=== PATIENT | male | born 1945 | race Asian ===

== ENCOUNTER → 2016-11-20 | Outpatient (CLI) | payer MEDICAID ==
[~2016-11-20] MED LIST: ALLO100T PO; AMLO10TA55 PO; ENOX40DI9 SQ; FISH1CAP49 PO; GLUC-165 PO; HYDR-3965 PO; IBUP-1547 PO; MULT-1259 PO; NAPR220T57 PO; PERCT10 PO; TAMS0.4C32 PO
== END | disposition home or self-care (01) ==
LOC: RADPV 09:50
PROVIDERS: ATTEND Orthopaedic Surgery
DX: M17.12 Unilateral primary osteoarthritis, left knee (principal); M11.262 Other chondrocalcinosis, left knee

== ENCOUNTER 2016-12-11 05:26 | Inpatient (IN) | payer MEDICAID, MEDICARE ==
[~2016-12-11] VITALS: Ht 157.5 cm; Wt 67.7 kg
[~2016-12-11 05:26] MED LIST changes: -ENOX40DI9 SQ; -FISH1CAP49 PO; +FentaNYL CITRATE-PF 100 MCG/2 ML VIAL IVP ONE; -GLUC-165 PO; -IBUP-1547 PO; +KETAMINE HCL 50 MG/ML 10 ML VIAL IVP ONE; +LIDOCAINE HCL/PF 2% 5 ML VIAL IM ONE; +MIDAZOLAM HCL 2 MG/2 ML VIAL IVP ONE; +MORPHINE SULFATE/PF 0.5 MG/ML 10 ML AMP IVP ONE; +ONDANSETRON HCL 4 MG/2 ML VIAL IVP ONE; -PERCT10 PO; +PROPOFOL 1% 20 ML VIAL IVP ONE
[2016-12-11] MEDS: RINGERS SOLUTION,LACTATED 1,000 ML IV SCH (06:22)
[2016-12-11 06:37] LABS: BASOPHILS % (AUTO) 0.7 % (0.0-2.0); EOSINOPHILS % (AUTO) 1.7 % (1.0-6.0); HEMATOCRIT 44.6 % (41-53); HEMOGLOBIN 14.6 g/dL (13.5-17.5); LYMPHOCYTES # (AUTO) 1.6 K/uL (1.0-4.8); LYMPHOCYTES % (AUTO) 19.2 % (22.0-44.0); MEAN CORPUSCULAR HEMOGLOBIN 30.5 pg (26.0-34.0); MEAN CORPUSCULAR HGB CONC 32.8 G/dL (31.0-37.0); MEAN CORPUSCULAR VOLUME 93 fL (80-100); MONOCYTES # (AUTO) 0.3 K/uL (0.1-1.0); NEUTROPHILS # (AUTO) 6.3 K/uL (1.8-7.7); NEUTROPHILS % (AUTO) 74.4 % (40.0-70.0); PLATELET COUNT (AUTO) 204 K/uL (150-450); RED BLOOD CELL COUNT(AUTO) 4.79 MIL/uL (4.50-5.90); RED CELL DISTRIBUTION WIDTH 14.7 % (11.5-14.5); WHITE BLOOD COUNT (AUTO) 8.5 K/uL (4.5-11.0)
[2016-12-11] MEDS ORDERED: VANCOMYCIN HCL 1 GM/VIAL ONE (06:43)
[2016-12-11 06:46] LABS: ANION GAP 12 mmol/L (8-16); CARBON DIOXIDE 25 mmol/L (22-29); CHLORIDE 106 mmol/L (98-107); CREATININE 1.09 mg/dL (0.60-1.30); GLOMERULAR FILTR. RATE CALC > 60 mL/min (>60); SODIUM SERUM 143 mmol/L (136-145); UREA NITROGEN, BLOOD 15 mg/dL (7-18)
[2016-12-11] MEDS ORDERED: SODIUM CL IRRIG SOLN BAG 3,000 ML IRRIG ONE (06:51)
[2016-12-11] MEDS ORDERED: CeFAZolin 2 GM/DEXTROSE 50 ML IV ONE (07:00)
[2016-12-11 07:05] LABS: INR 0.9 (0.9-1.1)
[2016-12-11] MEDS ORDERED: TRANEXAMIC ACID 1,000 MG in DEXTROSE 5%-WATER 50 ML IV ONE (07:15)
[2016-12-11] MEDS: BUPIVACAINE HCL/PF 0.5% 30 ML VIAL ONE ×2 (08:16→09:00)
[2016-12-11] MEDS: ACETAMINOPHEN 1000 MG/ISO-OSM 100 ML IV SCH ×2 (08:30→16:48)
[2016-12-11] MEDS ORDERED: HYDROmorphone 2 MG/ML SYRINGE IVP PRN ×2 (08:30)
[2016-12-11] MEDS ORDERED: MEPERIDINE-PF 25 MG/ML SYRINGE IVP PRN (08:30)
[2016-12-11] MEDS ORDERED: FentaNYL CITRATE-PF 100 MCG/2 ML VIAL IVP PRN (08:30)
[2016-12-11] MEDS ORDERED: CeFAZolin 2 GM/DEXTROSE 50 ML IV SCH (10:00)
[2016-12-11] MEDS: BISACODYL 5 MG EC TABLET PO SCH (12:51)
[2016-12-11] MEDS: CELECOXIB 100 MG CAPSULE PO SCH (12:51)
[2016-12-11 14:24] VITALS: BP 119/56
[2016-12-11] MEDS: CeFAZolin 2 GM/DEXTROSE 50 ML IV SCH ×2 (16:05→23:46)
[2016-12-11 17:30] VITALS: BP 138/66
[2016-12-11 19:38] VITALS: BP 114/54
[2016-12-11] MEDS: OXYGEN THERAPY IH SCH (20:00)
[2016-12-11] MEDS: TAMSULOSIN HCL 0.4 MG CAPSULE PO SCH (20:03)
[2016-12-11] MEDS: ALLOPURINOL 100 MG TABLET PO SCH (20:03)
[2016-12-11] MEDS: CYCLOBENZAPRINE HCL 10 MG TABLET PO PRN (20:03)
[2016-12-11 23:50] VITALS: BP 114/54
[2016-12-12] MEDS: RINGERS SOLUTION,LACTATED 1,000 ML IV SCH (01:00)
[2016-12-12] MEDS: ACETAMINOPHEN 1000 MG/ISO-OSM 100 ML IV SCH ×2 (01:00→08:52)
[2016-12-12 05:29] VITALS: BP 125/60
[2016-12-12 06:23] LABS: BASOPHILS % (AUTO) 0.5 % (0.0-2.0); EOSINOPHILS % (AUTO) 5.3 % (1.0-6.0); HEMATOCRIT 40.7 % (41-53); HEMOGLOBIN 13.2 g/dL (13.5-17.5); LYMPHOCYTES # (AUTO) 1.5 K/uL (1.0-4.8); LYMPHOCYTES % (AUTO) 18.6 % (22.0-44.0); MEAN CORPUSCULAR HEMOGLOBIN 30.1 pg (26.0-34.0); MEAN CORPUSCULAR HGB CONC 32.4 G/dL (31.0-37.0); MEAN CORPUSCULAR VOLUME 93 fL (80-100); MONOCYTES # (AUTO) 0.5 K/uL (0.1-1.0); MONOCYTES % (AUTO) 6.1 % (2.0-9.0); NEUTROPHILS # (AUTO) 5.7 K/uL (1.8-7.7); NEUTROPHILS % (AUTO) 69.5 % (40.0-70.0); PLATELET COUNT (AUTO) 177 K/uL (150-450); RED BLOOD CELL COUNT(AUTO) 4.38 MIL/uL (4.50-5.90); RED CELL DISTRIBUTION WIDTH 14.8 % (11.5-14.5); WHITE BLOOD COUNT (AUTO) 8.2 K/uL (4.5-11.0)
[2016-12-12 06:46] LABS: ANION GAP 10 mmol/L (8-16); CALCIUM, TOTAL 8.8 mg/dL (8.8-10.5); CARBON DIOXIDE 26 mmol/L (22-29); CHLORIDE 107 mmol/L (98-107); CREATININE 1.01 mg/dL (0.60-1.30); GLOMERULAR FILTR. RATE CALC > 60 mL/min (>60); POTASSIUM 4.2 mmol/L (3.5-5.1); SODIUM SERUM 143 mmol/L (136-145); UREA NITROGEN, BLOOD 16 mg/dL (7-18)
[2016-12-12] MEDS: OXYGEN THERAPY IH SCH (08:00)
[2016-12-12 08:02] VITALS: BP 127/72
[2016-12-12] MEDS: CeFAZolin 2 GM/DEXTROSE 50 ML IV SCH (08:52)
[2016-12-12] MEDS: BISACODYL 5 MG EC TABLET PO SCH (08:53)
[2016-12-12] MEDS: CELECOXIB 100 MG CAPSULE PO SCH (08:53)
[2016-12-12] MEDS: ALLOPURINOL 100 MG TABLET PO SCH ×2 (08:53→20:08)
[2016-12-12] MEDS: MULTIVITAMINS WITH MINERALS, THERAPEUTIC TABLET PO SCH (08:53)
[2016-12-12] MEDS: AmLODIPine BESYLATE 10 MG TABLET PO SCH (08:53)
[2016-12-12] MEDS: ENOXAPARIN SODIUM 40 MG/0.4 ML PF SYRINGE SQ SCH (08:54)
[2016-12-12 11:45] VITALS: BP 131/67
[2016-12-12] MEDS: CYCLOBENZAPRINE HCL 10 MG TABLET PO PRN (15:12)
[2016-12-12] MEDS ORDERED: HYDROCODONE/ACETAMINOPHEN 5-325 MG TABLET PO PRN (15:45)
[2016-12-12] MEDS: HYDROCODONE/ACETAMINOPHEN 5-325 MG TABLET PO PRN ×2 (16:05→20:07)
[2016-12-12 16:16] VITALS: BP 126/62
[2016-12-12 20:07] VITALS: BP 218/67
[2016-12-12] MEDS: TAMSULOSIN HCL 0.4 MG CAPSULE PO SCH (20:07)
[2016-12-12 23:45] VITALS: BP 110/61
[2016-12-13 04:01] VITALS: BP 146/78
[2016-12-13] MEDS: HYDROCODONE/ACETAMINOPHEN 5-325 MG TABLET PO PRN (06:02)
[2016-12-13 07:25] VITALS: BP 134/59
[2016-12-13] MEDS: OXYGEN THERAPY IH SCH (08:00)
[2016-12-13] MEDS: ALLOPURINOL 100 MG TABLET PO SCH (08:19)
[2016-12-13] MEDS: MULTIVITAMINS WITH MINERALS, THERAPEUTIC TABLET PO SCH (08:19)
[2016-12-13] MEDS: AmLODIPine BESYLATE 10 MG TABLET PO SCH (08:19)
[2016-12-13] MEDS: BISACODYL 5 MG EC TABLET PO SCH (08:19)
[2016-12-13] MEDS: CELECOXIB 100 MG CAPSULE PO SCH (08:19)
[2016-12-13] MEDS: ENOXAPARIN SODIUM 40 MG/0.4 ML PF SYRINGE SQ SCH (08:20)
[2016-12-13] MEDS ORDERED: ENOX40DI9 SQ (10:13)
[2016-12-13] MEDS ORDERED: PERCT10 PO (10:13)
[2016-12-13 11:54] VITALS: BP 152/65
[2016-12-13] MEDS: CYCLOBENZAPRINE HCL 10 MG TABLET PO PRN (15:12)
[2016-12-15] MEDS ORDERED: CeFAZolin 2 GM/DEXTROSE 50 ML IV ONE (16:22)
[2016-12-15] MEDS ORDERED: RINGERS SOLUTION,LACTATED 1,000 ML IV ONE ×2 (16:22)
[2016-12-15] MEDS ORDERED: CELECOXIB 200 MG CAPSULE ONE (16:22)
[2016-12-15] MEDS ORDERED: ACETAMINOPHEN 1000 MG/ISO-OSM 100 ML IV ONE (16:22)
== END 2016-12-13 15:46 | disposition home or self-care (01) | DRG 470 ==
LOC: 4E 05:26
PROVIDERS: ADMIT Orthopaedic Surgery; ATTEND Orthopaedic Surgery
PROC: 3E0T3CZ (ICD-10-PCS; 2016-12-11)
PROC: 0SRD0J9 Replacement of Left Knee Joint with Synthetic Substitute, Cemented, Open Approach (ICD-10-PCS; principal; 2016-12-11 08:04)
DX: M17.12 Unilateral primary osteoarthritis, left knee (principal); I10 Essential (primary) hypertension; N40.0 Benign prostatic hyperplasia without lower urinary tract symptoms; Z96.651 Presence of right artificial knee joint; M10.9 Gout, unspecified; Z98.890 Other specified postprocedural states; Z79.899 Other long term (current) drug therapy
CPT/HCPCS: 87081; 88300; 97110; 97116; 97161; 97165; 97530; G0238; J0131; J0690; J1170; J1650; J2250; J2274; J2405; J2704; J3010; J3370; J3490; J7060; J7120

== ENCOUNTER → 2017-09-24 | Outpatient (CLI) | payer MEDICAID ==
[~2017-09-24] MED LIST changes: +ENOX40DI9 SQ; -FentaNYL CITRATE-PF 100 MCG/2 ML VIAL IVP ONE; -HYDR-3965 PO; +HYDR-4061 PO; -KETAMINE HCL 50 MG/ML 10 ML VIAL IVP ONE; -LIDOCAINE HCL/PF 2% 5 ML VIAL IM ONE; -MIDAZOLAM HCL 2 MG/2 ML VIAL IVP ONE; -MORPHINE SULFATE/PF 0.5 MG/ML 10 ML AMP IVP ONE; -ONDANSETRON HCL 4 MG/2 ML VIAL IVP ONE; +PERCT10 PO; -PROPOFOL 1% 20 ML VIAL IVP ONE
== END | disposition home or self-care (01) ==
LOC: RADPV 09:10
PROVIDERS: ATTEND Orthopaedic Surgery
DX: Z47.1 Aftercare following joint replacement surgery (principal); M25.462 Effusion, left knee; Z96.652 Presence of left artificial knee joint